=== PATIENT | female | born 1950 | race Caucasian/White ===

== ENCOUNTER 2023-06-28 06:17 | Day surgery (SDC) | payer MEDICARE, SELFPAY ==
[2023-06-16 09:14] VITALS: BMI 25.5
[2023-06-16 10:42] LABS: Hematocrit 35.2 % (37.0-47.0); Hemoglobin 11.8 g/dL (12.0-16.0); Mean Corp Hgb Conc. 33.5 g/dL (33.0-37.0); Mean Corpuscular Hgb 30.6 pg (27.0-31.0); Mean Corpuscular Volume 91.2 fL (81.0-99.0); Mean Platelet Volume 11.3 fL (7.4-10.4); Platelet Count 218 10^3/uL (130-400); Red Blood Cell Count 3.86 10^6/uL (4.20-5.40); Red Cell Dist. Width 12.9 % (11.5-14.5); White Blood Cell Count 6.2 10^3/uL (4.8-10.8)
[2023-06-16 12:09] LABS: Blood Urea Nitrogen 11 mg/dl (7-17); Carbon Dioxide 26 mmol/L (22-30); Chloride 105 mmol/L (98-107); Estimated Creatinine Clearance 59 ml/min; Glucose 88 mg/dl (70-99); Potassium 4.5 mmol/L (3.5-5.1); Sodium 134 mmol/L (135-145); eGFR > 60.00
[2023-06-28] VITALS (13 sets, daily range): BP systolic 104–157; BP diastolic 57–95; BMI 25.5
[2023-06-28] MEDS: Pyridium 200 MG PO (09:08)
[2023-06-28] MEDS: HEPARIN 5000 UNITS SC (09:08)
[2023-06-28] MEDS: NORMOSOL-R 1000 IV (09:08)
[2023-06-28] MEDS: DILAUDID 2 MG PO (19:30)
== END 2023-06-28 19:36 | disposition home or self-care (01) ==
LOC: SDS 06:17
PROVIDERS: ATTENDING PHYSICIAN Obstetrics & Gynecology; FAMILY PHYSICIAN Family Medicine; OTHER PHYSICIAN Obstetrics & Gynecology
DX: N99.3 Prolapse of vaginal vault after hysterectomy (principal); N39.3 Stress incontinence (female) (male)
CPT/HCPCS: 57425; 57250; 57288; 36415; 80048; 85027; 86850; 86900; 86901; 93005; J1580

== ENCOUNTER 2023-11-01 06:18 | Day surgery (SDC) | payer MEDICARE, SELFPAY ==
[2023-11-01] VITALS (8 sets, daily range): BP systolic 132–188; BP diastolic 67–86; BMI 25.7
[2023-11-01] MEDS: Pyridium 200 MG PO (09:53)
[2023-11-01] MEDS: NORMOSOL-R/PLASMALYTE-A 1000 IV (09:54)
== END 2023-11-01 13:55 | disposition home or self-care (01) ==
LOC: SDS 06:18
PROVIDERS: ATTENDING PHYSICIAN Obstetrics & Gynecology
DX: N39.3 Stress incontinence (female) (male) (principal)
CPT/HCPCS: 51715; L8606

== ENCOUNTER → 2024-04-09 09:58 | Outpatient (REF) | payer MEDICARE, SELFPAY | LOC: RCS 09:58 | PROVIDERS: ATTENDING PHYSICIAN Internal Medicine Cardiovascular Disease; FAMILY PHYSICIAN Family Medicine | DX: I10 Essential (primary) hypertension (principal); R06.02 Shortness of breath; Z82.49 Family history of ischemic heart disease and other diseases of the circulatory system | CPT/HCPCS: 93306 ==

== ENCOUNTER → 2024-05-01 08:19 | Outpatient (REF) | payer MEDICARE, SELFPAY | LOC: WDC 08:19 | PROVIDERS: ATTENDING PHYSICIAN Family Medicine | DX: Z12.31 Encounter for screening mammogram for malignant neoplasm of breast (principal) | CPT/HCPCS: 77063; 77067 ==

== ENCOUNTER 2024-05-04 22:16 | Emergency (ER) | payer MEDICARE, SELFPAY ==
[2024-05-04 22:18] VITALS: BP 138/99
[2024-05-04 22:36] VITALS: BMI 25.3
[2024-05-04 22:46] VITALS: BP 144/66
[2024-05-04 22:53] LABS: % Basophils 0.7 % (0-2); % Eosinophils 3.7 % (0-6); % Immature Granulocytes 0.4 % (0-0.5); % Lymphocytes 20.1 % (20.5-51.1); % Monocytes 10.7 % (1.7-9.3); % Neutrophils 64.4 % (42.2-75.2); Absolute Basophils 0.1 10^3/uL (0-0.2); Absolute Eosinophils 0.4 10^3/uL (0-0.7); Absolute Lymphocytes 2.2 10^3/uL (1.2-3.4); Absolute Monocytes 1.2 10^3/uL (0.1-0.6); Hematocrit 35.4 % (37.0-47.0); Mean Corp Hgb Conc. 33.9 g/dL (33.0-37.0); Mean Corpuscular Hgb 30.6 pg (27.0-31.0); Mean Corpuscular Volume 90.3 fL (81.0-99.0); Mean Platelet Volume 10.9 fL (7.4-10.4); Nucleated Red Blood Cells % 0 %; Platelet Count 213 10^3/uL (130-400); Red Blood Cell Count 3.92 10^6/uL (4.20-5.40); White Blood Cell Count 10.9 10^3/uL (4.8-10.8)
[2024-05-04 23:00] VITALS: BP 133/74
[2024-05-04 23:05] LABS: ALT (SGPT) 33 U/L (0-35); AST (SGOT) 31 U/L (14-36); Albumin 4.7 g/dl (3.5-5.0); Alkaline Phosphatase 105 U/L (38-126); Blood Urea Nitrogen 26 mg/dl (7-17); Calcium 9.1 mg/dl (8.4-10.2); Carbon Dioxide 24 mmol/L (22-30); Chloride 99 mmol/L (98-107); Estimated Creatinine Clearance 58 ml/min; Glucose 100 mg/dl (70-99); Sodium 133 mmol/L (135-145); Total Bilirubin 0.6 mg/dl (0.2-1.3); eGFR > 60.00
--- NOTE | 2024-05-04 23:44 | ED.GENMED ---
History of Present Illness
General
Chief Complaint: Dizziness
Source: patient
Exam Limitations: none
Time Seen by Provider: 05/04/24 23:24
Nursing documentation reviewed up to this point in time: agreed with
History of Present Illness
History of Present Illness:
This is a 73-year-old woman who has history of hypertension, hyperlipidemia. She has been following with cardiology over the past several months and was noted to be hypertensive with systolic blood pressure 150s to 160s. Over the past several
months blood pressure medications have been adjusted by cardiology. Amlodipine added January 2024. Atenolol was changed to metoprolol in February but patient did not tolerate this, she also inadvertently discontinued amlodipine when metoprolol was
added in February. During office visit April 02, amlodipine 5 mg was resumed, metoprolol was discontinued and Coreg 3.125 mg twice daily was added.
5-day Holter monitor noted normal sinus rhythm with frequent PVCs with 13% PVC burden.
Echocardiogram March of this year essentially unremarkable.
She continues to monitor blood pressure at home and states blood pressure has been ranging 140s to 150 systolic over 60s to 70s. Over the past 2 to 3 days however she has had intermittent episodes of dizziness, most noted in the afternoon.
Dizziness comes on abruptly described as a sense of spinning or movement accompanied with mild lightheadedness. No nausea nor vomiting, no headache, no chest pain or palpitations, she has had mild shortness of breath but no cough, no fever no
chills, no congestion.
Blood pressure has been unchanged but when she checks her pulse rate she notices her pulse rate is low, in the 40s. Dizziness is worse with change in position, improves when she is sitting still.
No history of similar episodes in the past.
Currently asymptomatic.
Past History
Past History
ED Past Medical History: HTN and Psychiatric (Anxiety)
ED Past Surgical History: Cholecystectomy and Gynecological
Social History
Tobacco: Non-smoker
Alcohol: Occasional
Personal:
Living: with family
Employment: Employed
Family History
Family History: Other (Noncontributory)
Phy Exam
Physical Exam
Physical Exam:
GENERAL: Alert , in no apparent distress
EYE: pupils equal and reactive. Extraocular muscles intact. Mild right lateral gaze nystagmus. Test of skew is negative. Anicteric
NECK: Supple, nontender, no meningismus, no significant adenopathy.
ENT: posterior pharynx is clear, oral mucosa is moist. TM clear b/l, nares patent.
CARDIAC: Regular rate and rhythm. Occasional ectopy. No murmur.
LUNGS: Clear breath sounds bilaterally, no acute respiratory distress, no wheezes/rales/rhonchi
ABDOMEN: Soft, nondistended, without focal tenderness, no r/g, no cvat. normoactive BS.
NEUROLOGICAL: Alert and oriented x3, no focal neuro deficits. Gait is duque and steady.
SKIN: Warm and dry, normal color, skin intact. No rash.
MUSCULOSKELETAL: No C/C/E. peripheral pulses are full and equal b/l. No palpable tenderness.
PSYCH: Normal and appropriate interaction.
Course
Orders/Labs/Results
Orders:
Orders
05/04/24 22:21
EKG [Electrocardiogram (*1)] Urgent
Reason for Study: Vertigo / Dizzy
05/04/24 22:22
EKG- Treatment ONCE
05/04/24 22:43
Complete Blood Count/With Diff Urgent
Comprehensive Metabolic Panel Urgent
Magnesium Urgent
Comment: ADD ON
TSH Reflex To Free T4 Urgent
Comment: ADD ON
05/04/24 23:43
Add On- LAB Urgent
Tests Added?: Mg, TSH w reflex to free T-4
05/04/24 23:51
0.9% Sodium Chloride 1000 ml [Nss] 1,000 ml IV BOLUS
Abnormal Lab Results
05/04/24
22:43
WBC 10.9 H 10^3/uL
(4.8-10.8)
RBC 3.92 L 10^6/uL
(4.20-5.40)
Hct 35.4 L %
(37.0-47.0)
MPV 10.9 H fL
(7.4-10.4)
Absolute Neuts (auto) 7.0 H 10^3/uL
(1.4-6.5)
Absolute Monos (auto) 1.2 H 10^3/uL
(0.1-0.6)
Lymphocytes % 20.1 L %
(20.5-51.1)
Monocytes % 10.7 H %
(1.7-9.3)
Sodium 133 L mmol/L
(135-145)
BUN 26 H mg/dl
(7-17)
Glucose 100 H mg/dl
(70-99)
05/04/24 22:43
05/04/24 22:43
Vital Signs
Initial and Last Documented VS:
Initial Vital Signs
Temp Pulse Resp BP
97.7 F 54 16 138/99
05/04/24 22:18 05/04/24 22:18 05/04/24 22:18 05/04/24 22:18
Last Documented Vital Signs
Temp Pulse Resp BP Pulse Ox
97.7 F 82 11 111/72 99
05/04/24 22:18 05/05/24 01:00 05/05/24 01:00 05/05/24 00:03 05/05/24 01:00
MDM/Problems Addressed
Differential Diagnosis Includes:
Concern for bradycardia arrhythmia, hypotension however patient reports blood pressure has been unchanged, 140s to 150s systolic.
Dizziness may be benign paroxysmal positional vertigo, other consideration is central vertigo/vertebrobasilar insufficiency.
Concern for electrolyte abnormality, less likely anemia.
EKG shows normal sinus rhythm with frequent unifocal PVCs
Monitor shows similar.
Labs thus far reveal unremarkable CBC. Chemistries show moderate uptrend in BUN compared to previous, normal creatinine, normal electrolytes. Concern for potential mild dehydration.
Will check TSH, magnesium and plan for IV fluids as well as continue monitor tech.
Currently asymptomatic. To consider imaging/CT of the head but at this point not indicated.
Chronic conditions affecting care: HTN and Arrhythmia
*Pulse Oximetry
Patient hypoxic: no
*EKG
Interpreted by ED Provider?: Yes
Comparison EKG: changes noted (Frequent unifocal PVCs are new compared to previous EKG May 2023)
Rate: normal
Rhythm: sinus and PVC's
[place]: normal axis
Interval: normal interval
QRS Pattern: normal QRS
Ischemia: no ischemia
*[employer] Interpretation
Rate: normal
Rhythm: sinus and PVC's
*Critical Care Note
Total Time (30-74mins, 75-104mins- exclusive of procedures): Not Applicable
Update Note
Update Note:
01:30
Patient remains asymptomatic. Has ambulated to and from the bathroom with steady unaided gait. No return of dizziness/lightheadedness.
Monitor continues to show normal sinus rhythm with frequent unifocal PVCs.
She remains hemodynamically stable. Systolic blood pressure at its lowest 110 systolic but again asymptomatic.
Magnesium is normal. TSH is pending but patient is quite eager to be discharged to home.
Discussed importance of staying well-hydrated on a daily basis.
I do suspect an element of benign paroxysmal positional vertigo and thus have written a prescription for as needed meclizine.
Recommend prompt follow-up with lead pastor this week for recheck.
Return precautions discussed.
ED Attending Note
-
Portions of this chart may have been created with voice recognition software.� Occasional wrong word or��sound alike� substitutions may have occurred due to the inherent limitations of voice recognition software.
Discharge Plan
Departure
Patient Disposition: Home (Routine Discharge)
Date of Disposition: 05/05/24
Time of Disposition: 01:34
Patient with high blood pressure during this ER visit?: No
Condition: Good
Discharge Problem:
Benign paroxysmal positional vertigo, Frequent unifocal PVCs
Instructions: Vertigo (a type of dizziness), Ventricular premature beats
Prescriptions:
New
meclizine 25 mg tablet
25 mg PO QID PRN (Reason: dizziness, nausea) Qty: 20 0RF
No Action
atenolol 25 MG tablet
25 mg PO DAILY
multivitamin Tablet
1 tab PO DAILY
ascorbic acid (vitamin C) [Vitamin C] 1,000 mg Tablet
1,000 mg PO BID
atorvastatin 10 mg Tablet
10 mg PO DAILY
calcium carbonate [Calcium 600] 600 mg calcium (1,500 mg) Tablet
600 mg PO BID
lorazepam 0.5 mg Tablet
0.25 mg PO PRN PRN (Reason: anxiety)
ibuprofen [Advil] 200 mg Tablet
400 mg PO Q6H PRN (Reason: pain)
omega 9-foy-jup-fish oil [Fish Oil] 1,200 (144-216) mg Capsule
1 cap PO BID
Referrals:
Kenya Spring MD [Family Provider] -
Viktor Zelaya DO [Active] - Call in 1-3 days for appt
Interventions
Interventions:
*Risk Screen - Suicide Last Done: 05/04/24 22:18
*General Assessment Last Done: 05/04/24 22:18
*Neglect/Abuse Screening Last Done: 05/04/24 22:18
*ED- Fall Risk Assessment Last Done: 05/04/24 22:36
*ED COVID-19 Vaccine History Last Done: 05/04/24 22:36
ED- Neurological Assessment Last Done: 05/04/24 22:36
ED- Cardiac Assessment Last Done: 05/04/24 22:36
ED Swallowing Screen Last Done: 05/04/24 22:56
Discharge Date and Time
Print Language: [id number]
[2024-05-05] MEDS: NSS 1000 IV (00:01)
[2024-05-05 00:03] VITALS: BP 111/72
[2024-05-05 00:16] LABS: Magnesium 2.2 mg/dl (1.6-2.3)
[2024-05-05 02:54] LABS: TSH Reflex To Free T4 3.28 uIU/ml (0.47-4.68)
== END 2024-05-05 01:41 | disposition home or self-care (01) ==
LOC: EMR 22:16
PROVIDERS: EMERGENCY PHYSICIAN Emergency Medicine; FAMILY PHYSICIAN Family Medicine
DX: H81.10 Benign paroxysmal vertigo, unspecified ear (principal); I49.3 Ventricular premature depolarization; I10 Essential (primary) hypertension; E78.5 Hyperlipidemia, unspecified; Z79.899 Other long term (current) drug therapy; Z90.49 Acquired absence of other specified parts of digestive tract
CPT/HCPCS: 99284; 96360; 80053; 83735; 84443; 85025; 93005